=== PATIENT | female | born 1960 | race Caucasian/White ===

== ENCOUNTER 2024-04-17 21:40 | Emergency (ER) | payer OTHER, SELFPAY ==
--- NOTE | 2024-04-17 | ECG_ITS ---
Test Reason : CP Blood Pressure : */* mmHG Vent. Rate : 78 BPM Atrial Rate : 78 BPM P-R Int : 128 ms QRS Dur : 92 ms QT Int : 372 ms P-R-T Axes : 60 30 29 degrees QTcB Int : 424 ms Normal sinus rhythm Normal ECG No previous ECGs available Referred By: Generic ED Physician Electronically Signed By: DENICE SUAZO
[2024-04-17 21:50] VITALS: BP 130/93; PULSE 80; RESP 18; TEMP 36.4; O2SAT 97; BMI 42.1
[2024-04-17 22:12] LABS: Hematocrit 40.9 % (37.0-47.0); Hemoglobin 13.5 g/dl (12.0-16.0); Mean Corpuscular Hemoglobin 26.8 pg (27.0-33.0); Mean Corpuscular Volume 81.3 fL (80.0-98.0); Mean Platelet Volume 8.8 fL (9.4-12.3); Platelet Count 262 X10*3/uL (160-400); Red Blood Count 5.03 X10*6/uL (4.20-5.50); Red Cell Distribution Width 15.9 % (11.0-16.0)
[2024-04-17 22:17] LABS: INTERNATIONAL NORM RATIO 1.2 (0.9-1.1); Prothrombin Time 13.7 SEC (10.9-12.4)
[2024-04-17 22:25] LABS: Alanine Aminotransferase 24 U/L (0-31); Albumin Level 4.3 g/dL (3.5-5.0); Alkaline Phosphatase 60 U/L (39-117); Anion Gap 15 (12-20); Aspartate Amino Transferase 18 U/L (5-31); Bilirubin Total 0.3 mg/dL (0.0-1.0); Blood Urea Nitrogen 13 mg/dL (9-16); Calcium 11.4 mg/dL (8.4-10.2); Carbon Dioxide 26 mmol/L (22-29); Chloride 105 mmol/L (96-108); Creatinine Clr Calc Pharmacy 85.9; Estimated Glomerular Filt Rate > 60; Glucose Random 113 mg/dL (60-115); Sodium 142 mmol/L (135-145); Total Protein 8.1 g/dL (6.5-8.0)
[2024-04-17 22:32] LABS: Troponin-I High Sensitivity < 2.7 ng/L (<3.5-17.0)
--- NOTE | 2024-04-18 00:58 | ED_ITS ---
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 same patient's feel pain as a burning discomfort gets worse after eating food Related Data Previous Rx's ?Medication ?Instructions ?Recorded sucralfate 1 gram tablet 1 g PO TID #90 tabs 04/18/24 Allergies Allergy/AdvReac Type Severity Reaction Status Date / Time No Known Allergies Allergy Verified 04/17/24 21:52 Review of Systems 2 Review of Systems: Yes all other systems are reviewed and are negative PMFSH Social History Social History Smoked in Last 30 Days: No Use of substances other than those prescribed or required for medical reasons: No Advance Directives: No Advance Directives Information Provided: Yes Physical Exam 2 Vital Signs: Vital Signs: Last Vital Signs Temp 97.9 F 04/18/24 01:35 Pulse 78 04/18/24 01:35 Resp 16 04/18/24 01:35 BP 144/74 H 04/18/24 01:35 Pulse Ox 96 04/18/24 01:35 O2 Del Method Room Air 04/18/24 01:35 BMI result Body Mass Index 42.1 Appearance: Alert. Oriented X3. No acute distress. Eyes: No pallor or icterus ENT: Pharynx normal. Oral Mucosa moist Neck: Normal inspection. Neck supple. CVS: Normal heart rate and rhythm. Pulses normal. Respiratory: No respiratory distress. Equal air entry bilateral, no wheezing/rales/rhonchi Abdomen: Soft and nontender. Bowel sounds are present, no mass palpable, no CVA tenderness Skin: Skin warm and dry. Normal skin color. Normal skin turgor. Extremities: No lower extremity edema. No calf tenderness Neuro: Oriented X 3. No motor deficit. Medications Administered Discontinued Medications Generic Name Dose Route Start Last Admin Trade Name Freq PRN Reason Stop Dose Admin Al Hydroxide/Mg Hydroxide 30 ml 04/18/24 01:19 04/18/24 01:34 Magnesium Hydrox/Alum Hydrox 30 Ml Oral.Susp PO 04/18/24 01:20 30 ml ONCE ONE Administration Medical Decision Making Medical Decision Making [facility] Narrative: Patient with epigastric lower sternal chest pain atypical for 5 days EKG without any ischemic changes troponin negative patient advised to follow with PCP for further management unlikely coronary artery disease likely GI related/hiatal hernia Differential Diagnosis Differential Diagnoses: The differential diagnosis associated with the presentation includes ACS/hiatal hernia/GERD Lab Data [facility] Lab Attestation statement: I reviewed the patient's lab results. 04/17/24 22:06 04/17/24 22:06 Labs: Lab Results 04/17/24 Range/Units 22:06 WBC 8.0 (4.8-10.8) X10*3/uL RBC 5.03 (4.20-5.50) X10*6/uL Hgb 13.5 (12.0-16.0) g/dl Hct 40.9 (37.0-47.0) % MCV 81.3 (80.0-98.0) fL MCH 26.8 L (27.0-33.0) pg MCHC 33.0 (31.0-35.0) g/dl RDW 15.9 (11.0-16.0) % Plt Count 262 (160-400) X10*3/uL MPV 8.8 L (9.4-12.3) fL Absolute Nucleated RBC 0.000 (0.0-0.012) X10*3/uL Nucleated RBC % (auto) 0.0 (0.0-0.2) /100WBC PT 13.7 H (10.9-12.4) SEC INR 1.2 H (0.9-1.1) Sodium 142 (135-145) mmol/L Potassium 4.0 (3.3-5.1) mmol/L Chloride 105 (96-108) mmol/L Carbon Dioxide 26 (22-29) mmol/L Anion Gap 15 (12-20) BUN 13 (9-16) mg/dL Creatinine 0.75 (0.5-1.4) mg/dL Estim Creat Clear Calc 85.9 Estimated GFR > 60 Random Glucose 113 (60-115) mg/dL Calcium 11.4 H (8.4-10.2) mg/dL Total Bilirubin 0.3 (0.0-1.0) mg/dL AST 18 (5-31) U/L ALT 24 (0-31) U/L Alkaline Phosphatase 60 (39-117) U/L Troponin I High Sens < 2.7 (<3.5-17.0) ng/L Total Protein 8.1 H (6.5-8.0) g/dL Albumin 4.3 (3.5-5.0) g/dL Independent Interpretation I performed an independent interpretation of an: EKG Interpretation: Normal sinus rhythm heart rate 78 beats per minute normal intervals normal axis no acute STT changes no acute ischemia Discharge Plan Discharge Clinical Impression: Esophagitis Patient Disposition: Home, Self-Care Instructions: Esophagitis (ED) Additional Instructions: Avoid fried foods Continue Nexium Take sucralfate 1 tablet half an hour to 1 hour prior to eating meals Follow up with office assistance Prescriptions: New sucralfate 1 gram tablet 1 g PO TID Qty: 90 0RF Referrals: Moon Gruber MD [Physician] - 2 weeks Interventions: ED Discharge Assessment Last Done: 04/18/24 01:35 Discharge Date/Time: 04/18/24 01:36 Print Language: Persian
[2024-04-18 01:27] VITALS: BP 144/74; PULSE 78; RESP 16; TEMP 36.6; O2SAT 96
[2024-04-18] MEDS: Magnesium Hydrox/Alum Hydrox 30 ML ORAL.SUSP PO (01:34)
[2024-04-18 01:35] VITALS: BP 144/74; PULSE 78; RESP 16; TEMP 36.6; O2SAT 96
== END 2024-04-18 01:36 | disposition home or self-care (01) ==
PROVIDERS: Emergency Provider Internal Medicine; PCP Internal Medicine
DX: K20.90 Esophagitis, unspecified without bleeding (principal); R10.13 Epigastric pain; R07.89 Other chest pain
CPT/HCPCS: 36415; 80053; 84484; 85027; 85610; 93005; 99283; 99284